=== PATIENT | male | born 1980 | race Caucasian/White ===

== ENCOUNTER → 2022-07-23 18:02 | Outpatient (CLI) | payer BC, SELFPAY ==
--- NOTE | 2022-07-23 18:09 | XR_ITS ---
PROCEDURE INFORMATION: Exam: XR Left Ribs Exam date and time: 07/23/2022 6:04 PM Age: 42 years old Clinical indication: Chest wall pain; Left; Additional info: Leaned into the window of car to turn car off TECHNIQUE: Imaging protocol: Radiologic exam of the left ribs. Views: 2 views. COMPARISON: No relevant prior studies available. FINDINGS: Bones/joints: No fractures. No blastic or lytic lesions. Glenohumeral alignment is normal. The visualized lung munoz are clear. Pleural space: No pneumothorax. No evidence of pleural effusion. Heart/Mediastinum: Visualized mediastinal structures are unremarkable. Intraperitoneal space: Visualized upper abdominal structures are unremarkable. Soft tissues: Normal. IMPRESSION: No rib fractures or pneumothorax are identified. No acute findings.
== END ==
PROVIDERS: PCP Physician Assistant; Visit Provider Physician Assistant
DX: R07.81 Pleurodynia (principal)
CPT/HCPCS: 71100

== ENCOUNTER → 2022-07-26 23:26 | Outpatient (CLI) | payer BC, SELFPAY ==
[2022-07-26 18:20] LABS: Basophils % 0.3 % (0.1-2.0); Eosinophils % 0.3 % (0.1-12.0); Hematocrit 45.6 % (42.0-52.0); Hemoglobin 14.8 g/dL (14.1-18.0); Lymphocytes # 1.8 K/mm3 (0.7-4.5); Lymphocytes % 16.1 % (10-50); Mean Corpuscular HGB Conc 32.6 g/dL (31.8-35.4); Mean Corpuscular Hemoglobin 30.7 pg (27.0-31.2); Mean Corpuscular Volume 94.2 fl (80-94); Mean Platelet Volume 8.7 fl (7.4-10.4); Monocytes # 0.6 K/mm3 (0.1-1.0); Monocytes % 5.2 % (1.7-9.3); Neutrophils # 8.6 K/mm3 (1.8-7.8); Neutrophils % 78.2 % (37.0-80.0); Platelet Count 339 K/mm3 (142-424); Red Blood Count 4.84 M/mm3 (4.60-6.20); Red Cell Distribution Width 13.6 % (11.5-17.5)
[2022-07-26 18:26] LABS: Alanine Aminotransferase 27 U/L (12-78); Albumin Level 3.9 g/dl (3.5-5.0); Albumin/Globulin Ratio 1.4 (1.1-1.8); Alkaline Phosphatase 83 U/L (38-126); Aspartate Amino Transferase 26 U/L (17-59); Bilirubin,Total 0.4 mg/dl (0.2-1.3); Blood Urea Nitrogen 8 mg/dl (9-20); Calcium 8.9 mg/dl (8.4-10.2); Carbon Dioxide 24 mmol/L (22.0-30.0); Chloride 102 mmol/L (98-107); Chol/HDL Ratio 2.2 (1-3.5); Cholesterol 121 mg/dl (140-200); Estimated Glomerular Filt Rate 106 ml/min (>60); GFR (African American) 128 ML/MIN (>60); Globulin 2.8 g/dL (1.3-3.2); Glucose 103 mg/dl (74-100); HDL Cholesterol 56 mg/dl (40-60); Sodium 138 mmol/L (136-145); Total Protein,Serum 6.7 g/dl (6.3-8.2); Triglycerides 94 mg/dl (30-150); VLDL Cholesterol 19 mg/dL (0-40)
[2022-07-26 18:37] LABS: Direct LDL Cholesterol 59.17 mg/dL (100-129)
[2022-07-26 18:45] LABS: 25-OH Vitamin D, Total 26.1 ng/mL (30-100)
[2022-07-26 18:57] LABS: Prostate Specific Ag Screen 2.2 ng/ml (0.0-4.0); Thyroid Stimulating Hormone 0.49 uIU/mL (0.465-4.68)
[2022-07-26 19:16] LABS: Vitamin B12 241 pg/mL (239-931)
[2022-07-26 20:11] LABS: T4 (Thyroxine) 8.1 ug/dl (5.53-11.0)
== END ==
PROVIDERS: PCP Physician Assistant; Visit Provider Physician Assistant
DX: Z00.00 Encounter for general adult medical examination without abnormal findings (principal); E55.9 Vitamin D deficiency, unspecified; Z12.5 Encounter for screening for malignant neoplasm of prostate
CPT/HCPCS: 80053; 80061; 82306; 82607; 84436; 84443; 85025; G0103